=== PATIENT | female | born 1955 | race Caucasian/White ===

== ENCOUNTER 2020-07-16 16:26 | Emergency (ER) | payer BC ==
[~2020-07-16] VITALS: Ht 170.2 cm; Wt 98.0 kg
[2020-07-16 16:33] VITALS: BP 195/98
== END 2020-07-16 18:52 | disposition home or self-care (01) ==
LOC: ER 16:26
DX: M25.551 Pain in right hip (principal); E11.9 Type 2 diabetes mellitus without complications; I10 Essential (primary) hypertension; Z98.51 Tubal ligation status
CPT/HCPCS: 73502; 99283